=== PATIENT | female | born 1960 | race African-American/Black ===

== ENCOUNTER 2023-03-20 23:25 | Inpatient (IN) | payer OTHER, MEDICAID ==
[~2023-03-20] VITALS: Ht 167.6 cm; Wt 66.2 kg
[2023-03-20 23:44] VITALS: RESP 38
[2023-03-21 00:04] LABS: BASOPHILS % 0.9 % (0.0-2.0); EOSINOPHILS % 2.7 % (0.0-5.0); HEMOGLOBIN. 13.9 g/dL (12.0-16.0); LYMPHOCYTES % 40.7 % (20.0-50.0); MEAN CORPUSCULAR HEMOGLOBIN 28.7 pg (28.0-32.0); MEAN CORPUSCULAR HGB CONC 33.1 g/dL (31.0-37.0); MEAN CORPUSCULAR VOLUME 86.6 fL (81.0-99.0); MEAN PLATELET VOLUME 7.4 fl (7.4-10.4); MONOCYTES % 3.6 % (2.0-8.0); NEUTROPHILS % 52.1 % (40.0-76.0); PLATELET 379 x1000/uL (130-400); RED BLOOD CELL COUNT 4.85 mill/uL (4.2-5.4); RED CELL DISTRIBUTION WIDTH 15.8 % (11.6-14.6)
[2023-03-21 00:15] LABS: CHLORIDE 109 mEq/L (98-107); POTASSIUM 3.6 mEq/L (3.5-5.1); SODIUM 136 mEq/L (136-145)
[2023-03-21] MEDS ORDERED: ALBUTEROL (0.5%) 2.5MG/0.5ML NEB HHN ONE (00:30)
[2023-03-21 01:14] LABS: ALBUMIN 3.3 g/dL (3.4-5.0); CARBON DIOXIDE 17 mEq/L (21-32); GLUCOSE 281 mg/dL (70-105); INDEX HEMOLYSI 2 (1-3); INDEX ICTERIC 1 (1-4); INDEX LIPEMIC 2 (1-3); UREA NITROGEN BLOOD 12 mg/dL (7-21)
[2023-03-21 01:39] VITALS: RESP 24
[2023-03-21 01:41] LABS: ALANINE AMINOTRANSFERASE 23 IU/L (13-61); ASPARTATE AMINOTRANSFERASE 24 IU/L (15-37); BILIRUBIN TOTAL 0.6 mg/dL (0.1-1.0); CALCIUM 8.3 mg/dL (8.5-10.1); CREATININE 1.1 mg/dL (0.6-1.3); ETHANOL BLOOD < 10 mg/dL (-10); NT PRO B-TYPE NATRIURETIC PEP 4640 pg/mL (5-125); PROTEIN TOTAL 8.1 g/dL (6.0-8.3)
[2023-03-21 01:52] LABS: *AMPHETAMINES SCREEN URINE NEGATIVE (NEGATIVE); *BARBITURATES SCREEN URINE NEGATIVE (NEGATIVE); *BENZODIAZEPINES SCREEN URINE NEGATIVE (NEGATIVE); CANNABINOID URINE SCREEN NEGATIVE (NEGATIVE); ECSTASY MDMA SCREEN URINE NEGATIVE (NEGATIVE); METHADONE URINE SCREEN NEGATIVE (NEGATIVE); OPIATES URINE SCREEN NEGATIVE (NEGATIVE); PHENCYCLIDINE URINE SCREEN NEGATIVE (NEGATIVE)
[2023-03-21] MEDS ORDERED: PIPERACILLIN/TAZOBACTAM 3.375GM/50ML PREMIX IV ONE (02:00)
[2023-03-21 02:11] LABS: TROPONIN I HIGH SENSITIVITY 225 ng/L (<54)
[2023-03-21 02:17] LABS: *COCAINE SCREEN URINE NEGATIVE (NEGATIVE)
[2023-03-21 02:20] LABS: LACTIC ACID 4.4 mmol/L (0.4-2.0)
[2023-03-21] MEDS: PIPERACILLIN/TAZ 3.375G PREMIX 50 ML IV NR ×2 (02:58→06:38)
[2023-03-21] MEDS ORDERED: FUROSEMIDE 40MG/4ML VIAL IV NR (03:15)
[2023-03-21] MEDS ORDERED: ASPIRIN 325MG EC TABLET PO NR (03:15)
[2023-03-21] MEDS ORDERED: NITROGLYCERIN OINT 1GM/INCH UDPKT TD NR (03:15)
[2023-03-21] MEDS ORDERED: METHYLPREDNISOLONE SOD SUCC 40MG VIAL IV ONE (03:45)
[2023-03-21] MEDS: PANTOPRAZOLE SODIUM 40 MG/VIAL IV SCH (12:17)
[2023-03-21 17:41] VITALS: BP 137/75; PULSE 82; RESP 18; TEMP 96.7
[2023-03-21 17:43] VITALS: BP 137/75; PULSE 82; RESP 18; TEMP 96.7
[2023-03-21] MEDS ORDERED: ASPI-1406 PO (18:07)
[2023-03-21] MEDS ORDERED: CLOP75TA33 PO (18:07)
[2023-03-21] MEDS ORDERED: BISO5TAB13 PO ×2 (18:07→18:59)
[2023-03-21] MEDS ORDERED: COLC0.6T66 (18:07)
[2023-03-21] MEDS ORDERED: PANT40TA51 PO (18:07)
[2023-03-21] MEDS ORDERED: COLC0.6T66 PO (18:59)
[2023-03-21] MEDS ORDERED: EMPA25TA PO (18:59)
[2023-03-21] MEDS ORDERED: POTA-203 PO (18:59)
[2023-03-21] MEDS ORDERED: LEVO100T9 PO (18:59)
[2023-03-21] MEDS ORDERED: CYCL5TAB PO (18:59)
[2023-03-21] MEDS ORDERED: EZET10TA13 PO (18:59)
[2023-03-21] MEDS ORDERED: LOSA25TA26 PO (18:59)
[2023-03-21] MEDS ORDERED: FURO20TA4 PO (18:59)
[2023-03-21] MEDS ORDERED: MEGE400O5 PO (18:59)
[2023-03-21] MEDS: BUDESONIDE 0.5MG/2ML NEB HHN SCH (19:00)
[2023-03-21] MEDS ORDERED: ATOR-2 PO (19:01)
[2023-03-21] MEDS ORDERED: CARV3.1242 PO (19:01)
[2023-03-21] MEDS ORDERED: CILO100T3 PO (19:01)
[2023-03-21] MEDS ORDERED: LISI2.5T47 PO (19:01)
[2023-03-21] MEDS ORDERED: VENL-179 PO (19:01)
[2023-03-21 19:49] VITALS: PULSE 80; RESP 18; O2SAT 99
[2023-03-21 20:00] VITALS: BP 116/61; PULSE 88; RESP 18; TEMP 97.2
[2023-03-22] VITALS (8 sets, daily range): BP systolic 127–143; BP diastolic 75–91; PULSE 75–104; RESP 16–20; TEMP 95.7–97.1; O2SAT 98
[2023-03-22] MEDS: LEVOTHYROXINE SODIUM 100MCG TABLET PO SCH (06:22)
[2023-03-22] MEDS: PANTOPRAZOLE 40MG DR TABLET PO SCH ×2 (06:22→20:58)
[2023-03-22 07:34] LABS: BASOPHILS % 0.3 % (0.0-2.0); EOSINOPHILS % 0.1 % (0.0-5.0); HEMATOCRIT. 38.1 % (36.0-48.0); LYMPHOCYTES % 24.1 % (20.0-50.0); MEAN CORPUSCULAR HEMOGLOBIN 29.8 pg (28.0-32.0); MEAN CORPUSCULAR HGB CONC 34.1 g/dL (31.0-37.0); MEAN CORPUSCULAR VOLUME 87.5 fL (81.0-99.0); MEAN PLATELET VOLUME 8.1 fl (7.4-10.4); MONOCYTES % 6.5 % (2.0-8.0); PLATELET 333 x1000/uL (130-400); RED BLOOD CELL COUNT 4.36 mill/uL (4.2-5.4); RED CELL DISTRIBUTION WIDTH 16.1 % (11.6-14.6); WHITE BLOOD COUNT 12.3 x1000/uL (4.5-11.0)
[2023-03-22 08:07] LABS: CALCIUM 9.5 mg/dL (8.5-10.1); CARBON DIOXIDE 24 mEq/L (21-32); CHLORIDE 106 mEq/L (98-107); INDEX HEMOLYSI 1 (1-3); INDEX ICTERIC 1 (1-4); INDEX LIPEMIC 1 (1-3); POTASSIUM 4.2 mEq/L (3.5-5.1); SODIUM 137 mEq/L (136-145)
[2023-03-22 08:12] LABS: GLUCOSE 105 mg/dL (70-105); UREA NITROGEN BLOOD 18 mg/dL (7-21)
[2023-03-22] MEDS: PANTOPRAZOLE SODIUM 40 MG/VIAL IV SCH ×2 (09:00→11:28)
[2023-03-22] MEDS: POTASSIUM CHLORIDE 10MEQ TABLET SR PO SCH ×2 (09:00→17:00)
[2023-03-22] MEDS: EZETIMIBE 10MG TABLET PO SCH (09:00)
[2023-03-22] MEDS ORDERED: CARVEDILOL 3.125 MG TABLET PO SCH (09:00)
[2023-03-22] MEDS: LISINOPRIL 2.5MG TABLET PO SCH (09:00)
[2023-03-22] MEDS ORDERED: COLCHICINE 0.6MG TABLET PO SCH (09:00)
[2023-03-22] MEDS: BUDESONIDE 0.5MG/2ML NEB HHN SCH ×2 (09:13→19:58)
[2023-03-22] MEDS: IPRATROPIUM/ALBUTEROL 0.5-3(2.5)MG/3ML NEB HHN SCH ×2 (09:14→19:59)
[2023-03-22] MEDS: ASPIRIN 81MG EC TABLET PO SCH (09:51)
[2023-03-22] MEDS: CLOPIDOGREL 75MG TABLET PO SCH (09:52)
[2023-03-22] MEDS: VENLAFAXINE HCL 37.5MG TABLET PO SCH ×2 (09:52→17:00)
[2023-03-22] MEDS: FUROSEMIDE 40MG/4ML VIAL IVP SCH (09:58)
[2023-03-22 10:40] LABS: TROPONIN I HIGH SENSITIVITY 1868 ng/L (<54)
[2023-03-22] MEDS ORDERED: ENOXAPARIN 40MG/0.4ML SYR SUBCUT NR (13:00)
[2023-03-22 15:34] LABS: T4 FREE 1.22 ng/dL (0.76-1.46); THYROID STIMULATING HORMONE 0.32 uIU/mL (0.36-3.74)
[2023-03-22] MEDS: ATORVASTATIN CALCIUM 40MG TABLET PO SCH (20:58)
[2023-03-23] VITALS (10 sets, daily range): BP systolic 130–145; BP diastolic 68–90; PULSE 80–111; RESP 16–20; TEMP 96–96.6; O2SAT 97
[2023-03-23] MEDS: IPRATROPIUM/ALBUTEROL 0.5-3(2.5)MG/3ML NEB HHN SCH ×4 (01:57→20:36)
[2023-03-23] MEDS: PANTOPRAZOLE 40MG DR TABLET PO SCH (07:10)
[2023-03-23] MEDS: BUDESONIDE 0.5MG/2ML NEB HHN SCH ×2 (08:01→20:36)
[2023-03-23 08:49] LABS: BASOPHILS % 0.8 % (0.0-2.0); EOSINOPHILS % 0.8 % (0.0-5.0); HEMATOCRIT. 39.7 % (36.0-48.0); HEMOGLOBIN. 13.3 g/dL (12.0-16.0); LYMPHOCYTES % 26.7 % (20.0-50.0); MEAN CORPUSCULAR HEMOGLOBIN 29.2 pg (28.0-32.0); MEAN CORPUSCULAR HGB CONC 33.6 g/dL (31.0-37.0); MEAN CORPUSCULAR VOLUME 86.9 fL (81.0-99.0); MONOCYTES % 5.8 % (2.0-8.0); NEUTROPHILS % 65.9 % (40.0-76.0); PLATELET 337 x1000/uL (130-400); RED BLOOD CELL COUNT 4.56 mill/uL (4.2-5.4); RED CELL DISTRIBUTION WIDTH 16.2 % (11.6-14.6); WHITE BLOOD COUNT 11.2 x1000/uL (4.5-11.0)
[2023-03-23 08:51] LABS: CHLORIDE 107 mEq/L (98-107); INDEX HEMOLYSI 1 (1-3); INDEX ICTERIC 1 (1-4); INDEX LIPEMIC 1 (1-3); POTASSIUM 3.7 mEq/L (3.5-5.1); SODIUM 138 mEq/L (136-145)
[2023-03-23 09:02] LABS: CALCIUM 8.9 mg/dL (8.5-10.1); CARBON DIOXIDE 22 mEq/L (21-32); GLUCOSE 89 mg/dL (70-105); UREA NITROGEN BLOOD 20 mg/dL (7-21)
[2023-03-23 09:29] LABS: TROPONIN I HIGH SENSITIVITY 2191 ng/L (<54)
[2023-03-23] MEDS: POTASSIUM CHLORIDE 10MEQ TABLET SR PO SCH ×2 (09:36→16:49)
[2023-03-23] MEDS: EZETIMIBE 10MG TABLET PO SCH (09:36)
[2023-03-23] MEDS: LISINOPRIL 2.5MG TABLET PO SCH (09:36)
[2023-03-23] MEDS: LEVOTHYROXINE SODIUM 100MCG TABLET PO SCH (09:37)
[2023-03-23] MEDS: ASPIRIN 81MG EC TABLET PO SCH (09:37)
[2023-03-23] MEDS: PANTOPRAZOLE SODIUM 40 MG/VIAL IV SCH (09:37)
[2023-03-23] MEDS: FUROSEMIDE 40MG/4ML VIAL IVP SCH (09:37)
[2023-03-23] MEDS: VENLAFAXINE HCL 37.5MG TABLET PO SCH ×2 (09:38→16:49)
[2023-03-23] MEDS: CLOPIDOGREL 75MG TABLET PO SCH (09:38)
[2023-03-23] MEDS ORDERED: SODIUM CHLORIDE 0.45% 1,000 ML IV ONE (10:00)
[2023-03-23] MEDS ORDERED: LORAZEPAM 0.5MG TABLET PO NR (12:00)
[2023-03-23] MEDS ORDERED: ASPIRIN/SOD BICARB/CITRIC ACID 324MG TAB EFF ONE (12:42)
[2023-03-23] MEDS ORDERED: IODIXANOL 320MG/ML 100 ML BOTTLE IV ONE (12:42)
[2023-03-23] MEDS ORDERED: HEPARIN 1000 UNITS/ML 10ML ONE (12:42)
[2023-03-23] MEDS ORDERED: LIDOCAINE HCL/PF 1% 10 MG/ML 5ML VIAL ONE (12:42)
[2023-03-23] MEDS: ATORVASTATIN CALCIUM 40MG TABLET PO SCH (20:22)
[2023-03-24] VITALS (9 sets, daily range): BP systolic 121–155; BP diastolic 59–79; PULSE 76–120; RESP 18–24; TEMP 96.8–98.2
[2023-03-24] MEDS: IPRATROPIUM/ALBUTEROL 0.5-3(2.5)MG/3ML NEB HHN SCH ×4 (01:19→22:10)
[2023-03-24 06:53] LABS: BASOPHILS % 0.9 % (0.0-2.0); EOSINOPHILS % 0.8 % (0.0-5.0); HEMATOCRIT. 38.7 % (36.0-48.0); HEMOGLOBIN. 12.9 g/dL (12.0-16.0); LYMPHOCYTES % 22.1 % (20.0-50.0); MEAN CORPUSCULAR HEMOGLOBIN 28.9 pg (28.0-32.0); MEAN CORPUSCULAR HGB CONC 33.3 g/dL (31.0-37.0); MEAN CORPUSCULAR VOLUME 86.7 fL (81.0-99.0); MEAN PLATELET VOLUME 7.9 fl (7.4-10.4); MONOCYTES % 6.7 % (2.0-8.0); NEUTROPHILS % 69.5 % (40.0-76.0); PLATELET 335 x1000/uL (130-400); RED BLOOD CELL COUNT 4.46 mill/uL (4.2-5.4); RED CELL DISTRIBUTION WIDTH 15.8 % (11.6-14.6); WHITE BLOOD COUNT 9.7 x1000/uL (4.5-11.0)
[2023-03-24 07:39] LABS: CHLORIDE 105 mEq/L (98-107); INDEX HEMOLYSI 1 (1-3); INDEX ICTERIC 1 (1-4); INDEX LIPEMIC 1 (1-3); POTASSIUM 3.4 mEq/L (3.5-5.1); SODIUM 137 mEq/L (136-145)
[2023-03-24 07:43] LABS: CARBON DIOXIDE 23 mEq/L (21-32); GLUCOSE 113 mg/dL (70-105); UREA NITROGEN BLOOD 21 mg/dL (7-21)
[2023-03-24] MEDS: LEVOTHYROXINE SODIUM 100MCG TABLET PO SCH (08:43)
[2023-03-24] MEDS: ASPIRIN 81MG EC TABLET PO SCH (08:43)
[2023-03-24] MEDS: VENLAFAXINE HCL 37.5MG TABLET PO SCH ×2 (08:43→21:00)
[2023-03-24] MEDS: CLOPIDOGREL 75MG TABLET PO SCH (08:43)
[2023-03-24] MEDS: EZETIMIBE 10MG TABLET PO SCH (08:43)
[2023-03-24] MEDS: FAMOTIDINE 20MG TABLET PO SCH ×2 (08:44→17:00)
[2023-03-24] MEDS: POTASSIUM CHLORIDE 10MEQ TABLET SR PO SCH ×2 (08:44→17:00)
[2023-03-24] MEDS: LISINOPRIL 2.5MG TABLET PO SCH ×2 (08:44→08:51)
[2023-03-24] MEDS: BUDESONIDE 0.5MG/2ML NEB HHN SCH ×2 (08:55→22:11)
[2023-03-24] MEDS: FUROSEMIDE 40MG/4ML VIAL IVP SCH (09:00)
[2023-03-24] MEDS ORDERED: POTASSIUM CHLORIDE 20MEQ TABLET SR PO NR (09:15)
[2023-03-24 10:24] LABS: TROPONIN I HIGH SENSITIVITY 1748 ng/L (<54)
[2023-03-24] MEDS ORDERED: LIDOCAINE HCL 1% 10 MG/ML 10ML VIAL ONE (12:59)
[2023-03-24] MEDS ORDERED: ASPIRIN/SOD BICARB/CITRIC ACID 324MG TAB EFF ONE (13:04)
[2023-03-24] MEDS ORDERED: MIDAZOLAM HCL 2 MG/2 ML VIAL ONE (14:18)
[2023-03-24] MEDS ORDERED: FENTANYL CITRATE/PF 50MCG/ML 2ML VIAL ONE (14:18)
[2023-03-24] MEDS ORDERED: DIPHENHYDRAMINE 50MG/ML VIAL ONE (14:32)
[2023-03-24] MEDS ORDERED: ONDANSETRON HCL 4MG/2ML INJ IV PRN (15:45)
[2023-03-24] MEDS ORDERED: SODIUM CHLORIDE 0.45% 1,000 ML IV ONE (15:45)
[2023-03-24] MEDS ORDERED: MORPHINE SULFATE 2 MG/ML CPJ (NOT FOR IM USE) IV PRN (15:45)
[2023-03-24] MEDS ORDERED: ACETAMINOPHEN 325MG TABLET PO PRN (15:45)
[2023-03-24] MEDS ORDERED: ATROPINE SULFATE 1MG/10ML SYR IV PRN (15:45)
[2023-03-24] MEDS ORDERED: NALOXONE HCL 0.4MG/ML VIAL IV PRN (16:00)
[2023-03-24] MEDS: SPIRONOLACTONE 25MG TABLET PO SCH (17:00)
[2023-03-24] MEDS: ATORVASTATIN CALCIUM 40MG TABLET PO SCH (21:00)
[2023-03-24] MEDS: CARVEDILOL 3.125 MG TABLET PO SCH (21:00)
[2023-03-25] VITALS (7 sets, daily range): BP systolic 127–142; BP diastolic 71–78; PULSE 80–98; RESP 15–19; TEMP 96.4–98.5; O2SAT 98
[2023-03-25] MEDS: IPRATROPIUM/ALBUTEROL 0.5-3(2.5)MG/3ML NEB HHN SCH ×2 (01:51→09:10)
[2023-03-25] MEDS: LEVOTHYROXINE SODIUM 100MCG TABLET PO SCH (05:58)
[2023-03-25 07:09] LABS: BASOPHILS % 0.7 % (0.0-2.0); EOSINOPHILS % 1.6 % (0.0-5.0); HEMATOCRIT. 38.7 % (36.0-48.0); LYMPHOCYTES % 20.3 % (20.0-50.0); MEAN CORPUSCULAR HEMOGLOBIN 29.2 pg (28.0-32.0); MEAN CORPUSCULAR HGB CONC 33.6 g/dL (31.0-37.0); MEAN CORPUSCULAR VOLUME 86.8 fL (81.0-99.0); MONOCYTES % 7.2 % (2.0-8.0); NEUTROPHILS % 70.2 % (40.0-76.0); PLATELET 312 x1000/uL (130-400); RED BLOOD CELL COUNT 4.46 mill/uL (4.2-5.4); RED CELL DISTRIBUTION WIDTH 15.9 % (11.6-14.6); WHITE BLOOD COUNT 7.6 x1000/uL (4.5-11.0)
[2023-03-25 07:15] LABS: CHLORIDE 111 mEq/L (98-107); INDEX HEMOLYSI 1 (1-3); INDEX ICTERIC 1 (1-4); INDEX LIPEMIC 1 (1-3); POTASSIUM 4.3 mEq/L (3.5-5.1); SODIUM 141 mEq/L (136-145)
[2023-03-25 07:43] LABS: CALCIUM 8.8 mg/dL (8.5-10.1); CARBON DIOXIDE 22 mEq/L (21-32); CREATININE 1.1 mg/dL (0.6-1.3); GLUCOSE 96 mg/dL (70-105); UREA NITROGEN BLOOD 15 mg/dL (7-21)
[2023-03-25] MEDS: EZETIMIBE 10MG TABLET PO SCH (08:45)
[2023-03-25] MEDS: ASPIRIN 81MG EC TABLET PO SCH (08:45)
[2023-03-25] MEDS: FAMOTIDINE 20MG TABLET PO SCH ×2 (08:45→17:05)
[2023-03-25] MEDS: CLOPIDOGREL 75MG TABLET PO SCH (08:45)
[2023-03-25] MEDS: VENLAFAXINE HCL 37.5MG TABLET PO SCH ×2 (08:45→17:05)
[2023-03-25] MEDS: CARVEDILOL 3.125 MG TABLET PO SCH ×2 (08:46→21:52)
[2023-03-25] MEDS: SPIRONOLACTONE 25MG TABLET PO SCH (08:46)
[2023-03-25] MEDS: LISINOPRIL 2.5MG TABLET PO SCH (08:47)
[2023-03-25] MEDS: POTASSIUM CHLORIDE 10MEQ TABLET SR PO SCH (08:47)
[2023-03-25] MEDS ORDERED: IPRATROPIUM/ALBUTEROL 0.5-3(2.5)MG/3ML NEB HHN PRN (11:00)
[2023-03-25] MEDS ORDERED: SPIR25TA PO (11:03)
[2023-03-25] MEDS ORDERED: LOSA25TA3 PO (11:03)
[2023-03-25] MEDS ORDERED: FAMO20TA8 PO (11:03)
[2023-03-25] MEDS: LOSARTAN POTASSIUM 25 MG TABLET PO SCH (13:15)
[2023-03-25] MEDS: ATORVASTATIN CALCIUM 40MG TABLET PO SCH (21:00)
[2023-03-26] VITALS: BP 124/78; PULSE 60; RESP 14; TEMP 97.9
[2023-03-26 04:00] VITALS: BP_SYST 122; BP_SYST 124; BP_DIAS 62; BP_DIAS 78; PULSE 60; PULSE 74; RESP 14; RESP 16; TEMP 97.9; TEMP 98
[2023-03-26] MEDS ORDERED: LEVOTHYROXINE SODIUM 88MCG TABLET PO SCH (07:10)
[2023-03-26 08:00] VITALS: BP 125/68; PULSE 79; RESP 17; TEMP 97.5
[2023-03-26 08:26] VITALS: PULSE 74
[2023-03-26] MEDS: EZETIMIBE 10MG TABLET PO SCH (08:26)
[2023-03-26] MEDS: CLOPIDOGREL 75MG TABLET PO SCH (08:26)
[2023-03-26] MEDS: ASPIRIN 81MG EC TABLET PO SCH (08:26)
[2023-03-26] MEDS: LOSARTAN POTASSIUM 25 MG TABLET PO SCH (08:26)
[2023-03-26] MEDS: FAMOTIDINE 20MG TABLET PO SCH (08:26)
[2023-03-26] MEDS: VENLAFAXINE HCL 37.5MG TABLET PO SCH (08:26)
[2023-03-26] MEDS: CARVEDILOL 3.125 MG TABLET PO SCH (08:26)
[2023-03-26] MEDS: SPIRONOLACTONE 25MG TABLET PO SCH (08:28)
[2023-03-26] MEDS ORDERED: FUROSEMIDE 20MG TABLET PO SCH (09:00)
== END 2023-03-26 13:14 | disposition home or self-care (01) | DRG 280 ==
LOC: ER 23:42 → EDBEDREQTM 03-21 03:36 → EDBEDREQ 03-21 03:36 → MICUSO 03-21 05:51 → 8WST 03-21 17:19
PROVIDERS: ADMIT Internal Medicine; ATTEND Internal Medicine
PROC: 5A09357 Assistance with Respiratory Ventilation, Less than 24 Consecutive Hours, Continuous Positive Airway Pressure (ICD-10-PCS; 2023-03-21)
PROC: 4A023N7 Measurement of Cardiac Sampling and Pressure, Left Heart, Percutaneous Approach (ICD-10-PCS; principal; 2023-03-24)
PROC: B211YZZ Fluoroscopy of Multiple Coronary Arteries using Other Contrast (ICD-10-PCS; 2023-03-24)
DX: I21.4 Non-ST elevation (NSTEMI) myocardial infarction (principal); I50.23 Acute on chronic systolic (congestive) heart failure; J18.9 Pneumonia, unspecified organism; J96.00 Acute respiratory failure, unspecified whether with hypoxia or hypercapnia; J45.901 Unspecified asthma with (acute) exacerbation; I42.9 Cardiomyopathy, unspecified; I11.0 Hypertensive heart disease with heart failure; M35.00 Sjogren syndrome, unspecified; K21.9 Gastro-esophageal reflux disease without esophagitis; E03.9 Hypothyroidism, unspecified; Z20.822 Contact with and (suspected) exposure to COVID-19; E06.3 Autoimmune thyroiditis; E78.5 Hyperlipidemia, unspecified; E87.6 Hypokalemia; G35 Multiple sclerosis; I25.10 Atherosclerotic heart disease of native coronary artery without angina pectoris; Z95.5 Presence of coronary angioplasty implant and graft; Z79.02 Long term (current) use of antithrombotics/antiplatelets; Z79.82 Long term (current) use of aspirin; Z79.899 Other long term (current) drug therapy
CPT/HCPCS: 36415; 71045; 80048; 80053; 80305; 80320; 83605; 83880; 84439; 84443; 84481; 84484; 85025; 87186; 87426; 93005; 93306; 94640; 94660; 94664; 99291; C9113; J1200; J1644; J1650; J1940; J2250; J2405; J2543; J2920; J3010; J3490; J7626; Q9967; G0480

== ENCOUNTER 2023-10-22 14:32 | Inpatient (IN) | payer MEDICAID, OTHER ==
[~2023-10-22] VITALS: Ht 167.6 cm; Wt 70.4 kg
[~2023-10-22 14:32] MED LIST: ASPI-1406 PO; ATOR-2 PO; BISO5TAB13 PO; CARV3.1242 PO; CLOP75TA33 PO; COLC0.6T66 PO; CYCL5TAB PO; EMPA25TA PO; EZET10TA81 PO; FAMO20TA8 PO; FURO20TA4 PO; LEVO100T9 PO; LOSA-412 PO; POTA-203 PO; SPIR25TA PO; VENL-179 PO
[2023-10-22 14:38] VITALS: O2SAT 99
[2023-10-22 16:24] LABS: BASOPHILS % 1.2 % (0.0-2.0); EOSINOPHILS % 1.8 % (0.0-5.0); HEMATOCRIT. 39.4 % (36.0-48.0); HEMOGLOBIN. 13.1 g/dL (12.0-16.0); LYMPHOCYTES % 24.5 % (20.0-50.0); MEAN CORPUSCULAR HEMOGLOBIN 29.1 pg (28.0-32.0); MEAN CORPUSCULAR HGB CONC 33.4 g/dL (31.0-37.0); MEAN CORPUSCULAR VOLUME 87.4 fL (81.0-99.0); MEAN PLATELET VOLUME 7.6 fl (7.4-10.4); NEUTROPHILS % 65.5 % (40.0-76.0); PLATELET 287 x1000/uL (130-400); RED BLOOD CELL COUNT 4.51 mill/uL (4.2-5.4); RED CELL DISTRIBUTION WIDTH 15.6 % (11.6-14.6); WHITE BLOOD COUNT 9.6 x1000/uL (4.5-11.0)
[2023-10-22 16:42] LABS: ALANINE AMINOTRANSFERASE 24 IU/L (10-49); ALBUMIN 4.3 g/dL (3.2-4.8); ASPARTATE AMINOTRANSFERASE 32 IU/L (<34); BILIRUBIN TOTAL 0.6 mg/dL (0.1-1.0); CALCIUM 9.5 mg/dL (8.7-10.4); CARBON DIOXIDE 21 mEq/L (21-32); CHLORIDE 105 mEq/L (98-107); CREATININE 1.1 mg/dL (0.6-1.0); GLUCOSE 84 mg/dL (70-105); POTASSIUM 4.7 mEq/L (3.5-5.1); PROTEIN TOTAL 7.7 g/dL (6.0-8.3); SODIUM 135 mEq/L (136-145); UREA NITROGEN BLOOD 19 mg/dL (9-23)
[2023-10-22 16:44] LABS: TROPONIN I HIGH SENSITIVITY 54 ng/L (3.0-34)
[2023-10-22] MEDS ORDERED: ACETAMINOPHEN 325MG TABLET PO PRN (19:15)
[2023-10-22] MEDS ORDERED: IPRATROPIUM/ALBUTEROL 0.5-3(2.5)MG/3ML NEB HHN PRN (19:15)
[2023-10-22] MEDS ORDERED: MAGNESIUM/ALUMINUM HYDROXIDE/SIMETHICONE 30ML UDC PO PRN (19:15)
[2023-10-22] MEDS: ACETAMINOPHEN 325MG TABLET PO PRN (19:33)
[2023-10-22 20:25] LABS: PHOSPHORUS 3.7 mg/dL (2.5-4.9)
[2023-10-22] MEDS: ATORVASTATIN CALCIUM 40MG TABLET PO SCH (21:00)
[2023-10-22] MEDS: ENOXAPARIN 40MG/0.4ML SYR SUBCUT SCH (21:00)
[2023-10-23 00:37] LABS: CREATINE KINASE MB FRACTION 4.4 ng/mL (0.5-3.6)
[2023-10-23] MEDS: ASPIRIN 81MG EC TABLET PO SCH (09:22)
[2023-10-23] MEDS: PANTOPRAZOLE SODIUM 40 MG/VIAL IV SCH (09:22)
[2023-10-23] MEDS: FUROSEMIDE 40MG/4ML VIAL IV SCH (09:22)
[2023-10-23 11:06] LABS: CLARITY URINE CLEAR (CLEAR); COLOR URINE YELLOW (YELLOW); GLUCOSE URINE NEGATIVE (NEGATIVE); KETONES URINE NEGATIVE (NEGATIVE); LEUKOCYTE ESTERASE URINE 2+ (NEGATIVE); NITRITE URINE NEGATIVE (NEGATIVE); OCCULT BLOOD URINE NEGATIVE (NEGATIVE); PROTEIN URINE NEGATIVE (NEGATIVE); SPECIFIC GRAVITY URINE 1.005 (1.005-1.030); UROBILINOGEN URINE 0.2 E.U./dL (0.2-1.0)
[2023-10-23 11:17] LABS: BACTERIA URINE 1+; RBC URINE 0-2 /hpf (0-2); SQUAMOUS EPITHELIAL CELL URINE 1+ /lpf (RARE/1+); YEAST URINE NONE SEEN
[2023-10-23 11:21] VITALS: BP 117/69; PULSE 92; RESP 16; TEMP 97.7
[2023-10-23 11:23] LABS: BASOPHILS % 0.9 % (0.0-2.0); EOSINOPHILS % 2.4 % (0.0-5.0); HEMATOCRIT. 40.7 % (36.0-48.0); HEMOGLOBIN. 13.7 g/dL (12.0-16.0); LYMPHOCYTES % 30.1 % (20.0-50.0); MEAN CORPUSCULAR HEMOGLOBIN 29.2 pg (28.0-32.0); MEAN CORPUSCULAR HGB CONC 33.6 g/dL (31.0-37.0); MEAN PLATELET VOLUME 7.8 fl (7.4-10.4); MONOCYTES % 7.3 % (2.0-8.0); NEUTROPHILS % 59.3 % (40.0-76.0); PLATELET 316 x1000/uL (130-400); RED BLOOD CELL COUNT 4.68 mill/uL (4.2-5.4); RED CELL DISTRIBUTION WIDTH 15.9 % (11.6-14.6); WHITE BLOOD COUNT 7.4 x1000/uL (4.5-11.0)
[2023-10-23 12:00] VITALS: BP 117/69; PULSE 81; PULSE 92; RESP 16; RESP 18; TEMP 98.1
[2023-10-23 13:30] LABS: ALANINE AMINOTRANSFERASE 26 IU/L (10-49); ALBUMIN 4.6 g/dL (3.2-4.8); ASPARTATE AMINOTRANSFERASE 34 IU/L (<34); CALCIUM 9.7 mg/dL (8.7-10.4); CARBON DIOXIDE 20 mEq/L (21-32); CHLORIDE 105 mEq/L (98-107); CREATINE KINASE 257 IU/L (34-145); CREATINE KINASE MB FRACTION 3.1 ng/mL (0.5-3.6); CREATININE 1.3 mg/dL (0.6-1.0); GLUCOSE 99 mg/dL (70-105); POTASSIUM 4.9 mEq/L (3.5-5.1); PROTEIN TOTAL 8.1 g/dL (6.0-8.3); SODIUM 136 mEq/L (136-145); T4 FREE 1.31 ng/dL (0.89-1.76); THYROID STIMULATING HORMONE 6.65 uIU/mL (0.55-4.78); UREA NITROGEN BLOOD 18 mg/dL (9-23)
[2023-10-23 13:37] LABS: TROPONIN I HIGH SENSITIVITY 87 ng/L (3.0-34)
[2023-10-23 15:06] LABS: *AMPHETAMINES SCREEN URINE NEGATIVE (NEGATIVE); *BARBITURATES SCREEN URINE NEGATIVE (NEGATIVE); *BENZODIAZEPINES SCREEN URINE NEGATIVE (NEGATIVE); *COCAINE SCREEN URINE NEGATIVE (NEGATIVE); CANNABINOID URINE SCREEN NEGATIVE (NEGATIVE); ECSTASY MDMA SCREEN URINE NEGATIVE (NEGATIVE); METHADONE URINE SCREEN Neg (NEGATIVE); OPIATES URINE SCREEN NEGATIVE (NEGATIVE); PHENCYCLIDINE URINE SCREEN NEGATIVE (NEGATIVE)
[2023-10-23 16:00] VITALS: BP 129/71; PULSE 68; RESP 17; TEMP 97.8
[2023-10-23 20:00] VITALS: BP 135/72; PULSE 82; RESP 20; TEMP 98.2
[2023-10-23] MEDS: ONDANSETRON HCL 4MG/2ML INJ IV PRN (22:06)
[2023-10-24] VITALS: BP 125/68; PULSE 78; RESP 20; TEMP 97.8
[2023-10-24 04:00] VITALS: BP 126/66; PULSE 80; RESP 18; TEMP 98.5
[2023-10-24 07:08] LABS: EOSINOPHILS % 2.9 % (0.0-5.0); HEMATOCRIT. 37.7 % (36.0-48.0); HEMOGLOBIN. 12.8 g/dL (12.0-16.0); LYMPHOCYTES % 26.2 % (20.0-50.0); MEAN CORPUSCULAR HEMOGLOBIN 29.5 pg (28.0-32.0); MEAN CORPUSCULAR HGB CONC 33.9 g/dL (31.0-37.0); MEAN PLATELET VOLUME 7.5 fl (7.4-10.4); MONOCYTES % 9.5 % (2.0-8.0); NEUTROPHILS % 60.4 % (40.0-76.0); PLATELET 277 x1000/uL (130-400); RED BLOOD CELL COUNT 4.33 mill/uL (4.2-5.4); RED CELL DISTRIBUTION WIDTH 15.8 % (11.6-14.6); WHITE BLOOD COUNT 6.7 x1000/uL (4.5-11.0)
[2023-10-24 07:34] LABS: CALCIUM 8.9 mg/dL (8.7-10.4); CARBON DIOXIDE 28 mEq/L (21-32); CHLORIDE 102 mEq/L (98-107); CHOLESTEROL 206 mg/dL (<200); CREATININE 1.3 mg/dL (0.6-1.0); GLUCOSE 105 mg/dL (70-105); HDL CHOLESTEROL 52 mg/dL (>65); LDL CHOLESTEROL 141 mg/dL (5-100); POTASSIUM 4.4 mEq/L (3.5-5.1); SODIUM 136 mEq/L (136-145); TRIGLYCERIDE 118 mg/dL (0-150); UREA NITROGEN BLOOD 18 mg/dL (9-23)
[2023-10-24 08:00] VITALS: BP 118/71; PULSE 81; RESP 13; TEMP 97.1
[2023-10-24 08:05] LABS: TROPONIN I HIGH SENSITIVITY 66 ng/L (3.0-34)
[2023-10-24 12:00] VITALS: BP 112/91; PULSE 104; RESP 18; TEMP 97.7
[2023-10-24] MEDS: ACETAMINOPHEN 650MG/20.3ML UDC PO NR (12:42)
[2023-10-24] MEDS: MULTIVITAMINS,THER W-MINERALS TABLET PO NR (12:42)
[2023-10-24] MEDS: MELOXICAM 7.5MG TABLET PO NR (13:31)
[2023-10-24 14:51] VITALS: BP 112/91; PULSE 104; TEMP 97.7
[2023-10-25] MEDS ORDERED: FAMOTIDINE 20MG/2ML VIAL IV SCH (09:00)
== END 2023-10-24 16:00 | disposition home or self-care (01) | DRG 243 ==
LOC: ER 14:32 → 5WST 16:58 → EDBEDREQTM 17:00 → EDBEDREQ 17:00 → 7EST 10-23 11:01
PROVIDERS: ADMIT Internal Medicine; ATTEND Internal Medicine
DX: K21.9 Gastro-esophageal reflux disease without esophagitis (principal); I42.0 Dilated cardiomyopathy; E11.40 Type 2 diabetes mellitus with diabetic neuropathy, unspecified; M35.00 Sjogren syndrome, unspecified; E06.3 Autoimmune thyroiditis; E78.00 Pure hypercholesterolemia, unspecified; I11.0 Hypertensive heart disease with heart failure; I25.10 Atherosclerotic heart disease of native coronary artery without angina pectoris; G35 Multiple sclerosis; I25.5 Ischemic cardiomyopathy; I50.22 Chronic systolic (congestive) heart failure; J44.9 Chronic obstructive pulmonary disease, unspecified; Z79.82 Long term (current) use of aspirin; Z79.899 Other long term (current) drug therapy; Z87.891 Personal history of nicotine dependence; Z95.5 Presence of coronary angioplasty implant and graft
CPT/HCPCS: 36415; 71045; 80048; 80053; 80061; 80305; 81003; 82550; 82553; 83735; 83880; 84100; 84439; 84443; 84484; 85025; 87077; 87186; 93005; 93306; 93970; 99291; C9113; J1650; J1940; J2405

== ENCOUNTER 2024-09-01 07:39 | Inpatient (IN) | payer MEDICAID, OTHER ==
[~2024-09-01] VITALS: Ht 170.2 cm; Wt 68.0 kg
[~2024-09-01 07:39] MED LIST changes: -CYCL5TAB PO; +CYCL5TAB3 PO
[2024-09-01 08:48] LABS: BASOPHILS % 0.9 % (0.0-2.0); EOSINOPHILS % 0.1 % (0.0-5.0); HEMATOCRIT. 43.4 % (36.0-48.0); HEMOGLOBIN. 14.4 g/dL (12.0-16.0); LYMPHOCYTES % 17.6 % (20.0-50.0); MEAN CORPUSCULAR HEMOGLOBIN 29.8 pg (28.0-32.0); MEAN CORPUSCULAR HGB CONC 33.2 g/dL (31.0-37.0); MEAN CORPUSCULAR VOLUME 89.7 fL (81.0-99.0); MONOCYTES % 4.4 % (2.0-8.0); RED BLOOD CELL COUNT 4.84 mill/uL (4.2-5.4); RED CELL DISTRIBUTION WIDTH 13.9 % (11.6-14.6); WHITE BLOOD COUNT 14.9 x1000/uL (4.5-11.0)
[2024-09-01 09:00] LABS: DIFFERENTIAL COMMENT 1
[2024-09-01 09:01] LABS: CARBON DIOXIDE 22 mEq/L (21-32); CHLORIDE 105 mEq/L (98-107); POTASSIUM 4.7 mEq/L (3.5-5.1); SODIUM 138 mEq/L (136-145)
[2024-09-01 09:02] LABS: CALCIUM 10.2 mg/dL (8.7-10.4)
[2024-09-01 09:06] LABS: CREATININE 1.3 mg/dL (0.6-1.0)
[2024-09-01 09:07] LABS: GLUCOSE 105 mg/dL (70-105); TROPONIN I HIGH SENSITIVITY 8 ng/L (3.0-34); UREA NITROGEN BLOOD 18 mg/dL (9-23)
[2024-09-01 09:08] LABS: ALANINE AMINOTRANSFERASE 29 IU/L (10-49); ASPARTATE AMINOTRANSFERASE 27 IU/L (<34)
[2024-09-01 09:09] LABS: ALBUMIN 4.6 g/dL (3.2-4.8); BILIRUBIN DIRECT 0.1 mg/dL (<=3.0); BILIRUBIN TOTAL 0.6 mg/dL (0.1-1.0); PROTEIN TOTAL 8.4 g/dL (6.0-8.3)
[2024-09-01 12:16] LABS: CLARITY URINE CLEAR (CLEAR); COLOR URINE YELLOW (YELLOW); GLUCOSE URINE NEGATIVE (NEGATIVE); KETONES URINE NEGATIVE (NEGATIVE); LEUKOCYTE ESTERASE URINE NEGATIVE (NEGATIVE); NITRITE URINE NEGATIVE (NEGATIVE); OCCULT BLOOD URINE TRACE (NEGATIVE); PROTEIN URINE TRACE (NEGATIVE); SPECIFIC GRAVITY URINE 1.019 (1.005-1.030); UROBILINOGEN URINE 0.2 E.U./dL (0.2-1.0)
[2024-09-01 12:29] LABS: BACTERIA URINE FEW; RBC URINE 0-2 /hpf (0-2); SQUAMOUS EPITHELIAL CELL URINE 1+ /lpf (RARE/1+); WBC URINE 0-2 /hpf (0-2); YEAST URINE FEW
[2024-09-01] MEDS ORDERED: REGADENOSON 0.4 MG/5 ML IV NR (12:45)
[2024-09-01 12:53] LABS: TROPONIN I HIGH SENSITIVITY 10 ng/L (3.0-34)
[2024-09-01 12:58] LABS: *AMPHETAMINES SCREEN URINE NEGATIVE (NEGATIVE); *BARBITURATES SCREEN URINE NEGATIVE (NEGATIVE); *BENZODIAZEPINES SCREEN URINE NEGATIVE (NEGATIVE); *COCAINE SCREEN URINE NEGATIVE (NEGATIVE); CANNABINOID URINE SCREEN NEGATIVE (NEGATIVE); ECSTASY MDMA SCREEN URINE NEGATIVE (NEGATIVE); METHADONE URINE SCREEN NEGATIVE (NEGATIVE); OPIATES URINE SCREEN NEGATIVE (NEGATIVE); PHENCYCLIDINE URINE SCREEN NEGATIVE (NEGATIVE)
[2024-09-01] MEDS: CLOPIDOGREL 75MG TABLET PO SCH (13:00)
[2024-09-01] MEDS: ASPIRIN 81MG EC TABLET PO SCH (13:00)
[2024-09-01 13:47] LABS: PLATELET 255 x1000/uL (130-400)
[2024-09-01 20:00] VITALS: BP 109/73; PULSE 82; RESP 18; TEMP 36.6696; O2SAT 100
[2024-09-01] MEDS ORDERED: ACETAMINOPHEN 650MG/20.3ML UDC PO PRN (20:00)
[2024-09-01] MEDS ORDERED: NALOXONE HCL 0.4MG/ML VIAL IV PRN (20:15)
[2024-09-01] MEDS: FAMOTIDINE 20MG TABLET PO SCH (20:57)
[2024-09-01] MEDS: HYDROCODONE/ACETAMINOPHEN 5/325MG TABLET PO PRN (20:58)
[2024-09-01] MEDS: CARVEDILOL 3.125 MG TABLET PO SCH (20:58)
[2024-09-01] MEDS: COLCHICINE 0.6MG TABLET PO SCH (20:59)
[2024-09-01] MEDS ORDERED: ATORVASTATIN CALCIUM 40MG TABLET PO SCH (21:00)
[2024-09-01 22:59] VITALS: BP 109/73; PULSE 82; RESP 18; TEMP 36.696
[2024-09-01] MEDS ORDERED: ZOLPIDEM TARTRATE 5MG TABLET PO PRN (23:30)
[2024-09-01] MEDS ORDERED: ACETAMINOPHEN 325MG TABLET PO PRN (23:30)
[2024-09-01] MEDS ORDERED: ONDANSETRON HCL 4MG/2ML INJ IV PRN (23:30)
[2024-09-01] MEDS ORDERED: GUAIFENESIN 200MG/10ML SUGAR FREE UDC PO PRN (23:30)
[2024-09-01] MEDS ORDERED: CLONIDINE 0.1MG TABLET PO PRN (23:30)
[2024-09-01] MEDS ORDERED: MAGNESIUM/ALUMINUM HYDROXIDE/SIMETHICONE 30ML UDC PO PRN (23:30)
[2024-09-01] MEDS ORDERED: DIPHENHYDRAMINE 50MG/ML VIAL IV PRN (23:30)
[2024-09-02] VITALS: BP 93/55; PULSE 75; RESP 18; TEMP 37.00296; O2SAT 100
[2024-09-02 04:00] VITALS: BP 101/55; PULSE 70; RESP 18; TEMP 36.89184; O2SAT 100
[2024-09-02] MEDS: SODIUM CHLORIDE 0.9% 3ML FLUSH IVF SCH (05:23)
[2024-09-02] MEDS: LEVOTHYROXINE SODIUM 100MCG TABLET PO SCH (07:40)
[2024-09-02 07:47] LABS: HEMATOCRIT. 42.3 % (36.0-48.0); HEMOGLOBIN. 14.1 g/dL (12.0-16.0); MEAN CORPUSCULAR HEMOGLOBIN 29.7 pg (28.0-32.0); MEAN CORPUSCULAR HGB CONC 33.3 g/dL (31.0-37.0); MEAN CORPUSCULAR VOLUME 89.2 fL (81.0-99.0); MEAN PLATELET VOLUME 7.4 fl (7.4-10.4); PLATELET 311 x1000/uL (130-400); RED BLOOD CELL COUNT 4.74 mill/uL (4.2-5.4)
[2024-09-02 08:00] VITALS: BP 124/65; PULSE 71; RESP 16; TEMP 36.44736; O2SAT 98
[2024-09-02 08:07] LABS: DIFFERENTIAL COMMENT 1
[2024-09-02 08:15] LABS: POTASSIUM 4.5 mEq/L (3.5-5.1)
[2024-09-02 08:17] LABS: CALCIUM 9.5 mg/dL (8.7-10.4)
[2024-09-02 08:21] LABS: CREATININE 1.3 mg/dL (0.6-1.0)
[2024-09-02] MEDS: POTASSIUM CHLORIDE 20MEQ TABLET SR PO SCH (08:48)
[2024-09-02] MEDS: FUROSEMIDE 40MG TABLET PO SCH (08:49)
[2024-09-02] MEDS: EMPAGLIFLOZIN 10MG TABLET PO SCH (08:50)
[2024-09-02] MEDS: EZETIMIBE 10MG TABLET PO SCH (08:50)
[2024-09-02] MEDS: LOSARTAN 25 MG TABLET PO SCH (08:56)
[2024-09-02 12:00] VITALS: BP 116/67; PULSE 70; RESP 16; TEMP 36.114; O2SAT 99
[2024-09-02 16:00] VITALS: BP 112/69; PULSE 80; RESP 16; TEMP 36.28068; O2SAT 100
[2024-09-02] MEDS: ACETAMINOPHEN 325MG TABLET PO PRN (17:49)
[2024-09-02 18:08] LABS: PLATELET ESTIMATE NORMAL
[2024-09-02 20:00] VITALS: BP 108/56; PULSE 79; RESP 18; TEMP 36.61404; O2SAT 99
[2024-09-03] VITALS: BP 111/65; PULSE 79; RESP 16; TEMP 36.55848; O2SAT 99
[2024-09-03 04:00] VITALS: BP 113/73; PULSE 81; RESP 18; TEMP 36.61404; O2SAT 100
[2024-09-03 08:00] VITALS: BP 104/63; PULSE 80; RESP 16; TEMP 36.114; O2SAT 99
[2024-09-03 12:00] VITALS: BP 111/75; PULSE 75; RESP 16; TEMP 36.44736; O2SAT 100
[2024-09-03 16:00] VITALS: BP 114/71; PULSE 71; RESP 16; TEMP 36.3918; O2SAT 99
[2024-09-03 20:00] VITALS: BP 117/73; PULSE 87; RESP 18; TEMP 36.72516; O2SAT 96
[2024-09-04] VITALS: BP 109/69; PULSE 79; RESP 18; TEMP 36.61404; O2SAT 98
[2024-09-04 04:00] VITALS: BP 103/64; PULSE 78; RESP 18; TEMP 36.78072; O2SAT 99
[2024-09-04] MEDS ORDERED: REGADENOSON 0.4 MG/5 ML IV ONE (08:11)
[2024-09-04 16:00] VITALS: BP 106/67; PULSE 81; RESP 18; TEMP 36.61404; O2SAT 96
[2024-09-04 16:25] LABS: BASOPHILS % 1.3 % (0.0-2.0); EOSINOPHILS % 1.6 % (0.0-5.0); HEMATOCRIT. 45.4 % (36.0-48.0); HEMOGLOBIN. 14.8 g/dL (12.0-16.0); LYMPHOCYTES % 25.5 % (20.0-50.0); MEAN CORPUSCULAR HEMOGLOBIN 28.9 pg (28.0-32.0); MEAN CORPUSCULAR HGB CONC 32.6 g/dL (31.0-37.0); MEAN CORPUSCULAR VOLUME 88.9 fL (81.0-99.0); MEAN PLATELET VOLUME 7.7 fl (7.4-10.4); MONOCYTES % 6.8 % (2.0-8.0); NEUTROPHILS % 64.8 % (40.0-76.0); PLATELET 347 x1000/uL (130-400); RED BLOOD CELL COUNT 5.11 mill/uL (4.2-5.4); RED CELL DISTRIBUTION WIDTH 14.2 % (11.6-14.6); WHITE BLOOD COUNT 10.1 x1000/uL (4.5-11.0)
[2024-09-04 16:33] LABS: POTASSIUM 4.6 mEq/L (3.5-5.1)
[2024-09-04 16:34] LABS: CALCIUM 9.7 mg/dL (8.7-10.4)
[2024-09-04 16:39] LABS: CREATININE 1.3 mg/dL (0.6-1.0)
[2024-09-04 18:36] VITALS: BP 106/67; PULSE 81; TEMP 97.5; O2SAT 98
== END 2024-09-04 19:15 | disposition home or self-care (01) | DRG 198 ==
LOC: ER 07:43 → EDBEDREQTM 08:49 → EDBEDREQ 08:49 → 7WST 18:16
PROVIDERS: ADMIT Internal Medicine; ATTEND Internal Medicine
DX: R07.89 Other chest pain (principal); I25.10 Atherosclerotic heart disease of native coronary artery without angina pectoris; I42.9 Cardiomyopathy, unspecified; I50.22 Chronic systolic (congestive) heart failure; I11.0 Hypertensive heart disease with heart failure; E06.3 Autoimmune thyroiditis; E78.00 Pure hypercholesterolemia, unspecified; K21.9 Gastro-esophageal reflux disease without esophagitis; J45.909 Unspecified asthma, uncomplicated; I25.2 Old myocardial infarction; Z79.02 Long term (current) use of antithrombotics/antiplatelets; Z95.5 Presence of coronary angioplasty implant and graft; Z79.82 Long term (current) use of aspirin; Z79.84 Long term (current) use of oral hypoglycemic drugs; Z91.011 Allergy to milk products; Z88.8 Allergy status to other drugs, medicaments and biological substances; Z91.048 Other nonmedicinal substance allergy status
CPT/HCPCS: 36415; 71045; 78452; 80048; 80076; 80305; 81003; 84484; 85025; 93005; 93017; 93306; 99285; A4663; A9500; J2785

== ENCOUNTER 2025-07-13 13:41 | Emergency (ER) | payer OTHER, MEDICAID ==
[~2025-07-13] VITALS: Ht 165.1 cm; Wt 72.0 kg
[2025-07-13 13:47] VITALS: O2SAT 99
[2025-07-13 14:41] LABS: HEMATOCRIT. 36.5 % (36.0-48.0); HEMOGLOBIN. 11.8 g/dL (12.0-16.0); MEAN PLATELET VOLUME 7.8 fl (7.4-10.4); PLATELET 244 x1000/uL (130-400); RED BLOOD CELL COUNT 4.22 mill/uL (4.2-5.4); RED CELL DISTRIBUTION WIDTH 14.0 % (11.6-14.6)
[2025-07-13 14:58] LABS: CREATININE 1.0 mg/dL (0.6-1.0)
[2025-07-13 14:59] LABS: TROPONIN I HIGH SENSITIVITY 17 ng/L (3.0-34); UREA NITROGEN BLOOD 9 mg/dL (9-23)
[2025-07-13 15:00] LABS: ASPARTATE AMINOTRANSFERASE 30 IU/L (<34); INR 1.0
[2025-07-13 15:01] LABS: BILIRUBIN DIRECT 0.3 mg/dL (<=3.0); BILIRUBIN TOTAL 1.0 mg/dL (0.1-1.0); PROTEIN TOTAL 7.3 g/dL (6.0-8.3)
[2025-07-13 16:31] VITALS: BP 135/69; PULSE 99; RESP 18; TEMP 37.3; O2SAT 100
[2025-07-13 16:47] LABS: TROPONIN I HIGH SENSITIVITY 19 ng/L (3.0-34)
[2025-07-13 18:36] LABS: BAND% 4.0 % (1.0-6.0); LYMPHOCYTES % MANUAL 12.0 % (20.0-60.0); MONOCYTES % MANUAL 3.0 % (2.0-8.0); NEUTROPHILS % MANUAL 81.0 % (45.0-75.0); PLATELET ESTIMATE NORMAL
== END 2025-07-13 16:42 | disposition home or self-care (01) ==
LOC: ER 13:41 → CMPBEDREQ 18:41
DX: R07.2 Precordial pain (principal); R06.02 Shortness of breath; E78.00 Pure hypercholesterolemia, unspecified; I11.0 Hypertensive heart disease with heart failure; I50.9 Heart failure, unspecified; I25.2 Old myocardial infarction; J45.909 Unspecified asthma, uncomplicated; Z79.02 Long term (current) use of antithrombotics/antiplatelets; Z79.82 Long term (current) use of aspirin; Z79.84 Long term (current) use of oral hypoglycemic drugs; Z79.899 Other long term (current) drug therapy; Z88.8 Allergy status to other drugs, medicaments and biological substances; Z91.0110 Allergy to milk products, unspecified; Z91.018 Allergy to other foods
CPT/HCPCS: 36415; 71045; 80048; 80076; 83735; 84484; 85025; 93005; 99285; A4606